=== PATIENT | male | born 1955 | race Caucasian/White ===

== ENCOUNTER → 2023-08-30 10:44 | Outpatient (BNVA) | payer MEDICARE, SELFPAY | PROVIDERS: Visit Provider Surgery | DX: K21.9 Gastro-esophageal reflux disease without esophagitis (principal); Z12.11 Encounter for screening for malignant neoplasm of colon; K40.20 Bilateral inguinal hernia, without obstruction or gangrene, not specified as recurrent | CPT/HCPCS: 99203 ==

== ENCOUNTER 2025-05-09 12:04 | Emergency (ER) | payer MEDICARE, SELFPAY ==
--- NOTE | 2025-05-09 12:07 | XRR_ITS ---
PROCEDURE INFORMATION: Exam: XR Right Shoulder Exam date and time: 05/09/2025 12:34 PM Age: 70 years old Clinical indication: Injury or trauma; Fall; Blunt trauma (contusions or hematomas); Shoulder; Right TECHNIQUE: Imaging protocol: Radiologic exam of the right shoulder. Views: 2 or more views. COMPARISON: No relevant prior studies available. FINDINGS: Bones/joints: Normal. Soft tissues: Normal. XR/XR shoulder RT min 2V* [id number] IMPRESSION: No acute findings.
[2025-05-09 12:12] VITALS: BP 151/92; PULSE 75; TEMP 36.5; O2SAT 98
--- OUTSIDE RECORDS SUMMARY | 2025-05-09 13:35 | XMS_ITS | Data Portability ---
Author Organization TOO - [facility], [facility] Address [address] [facility] [address] [place] [address] Assessment No assessment recorded. Plan of Treatment Reminders Order Date Submit Date Provider Last Modified By Organization Details Last Modified Time Details Appointments None recorded. Lab urinalysis , complete 2023 024 [email or web address] [facility], [address] [facility], [place], [address], 4 15:11:03 culture, urine 2023 024 [facility], [address] [place] [address] 248, [facility] [address] [place], [address], 4 22:36:36 Referral general surgeon referral 2023 024 [email or web address] Harpal Strauss MD, [address] [facility], [place], [address], 4 14:26:14 Procedures None recorded. Surgeries None recorded. Imaging None recorded. Medication Orders None recorded. Patient TargetsNo targets recorded. Patient InstructionsNo instructions recorded. Reason for Referral General Surgeon Referral for Left inguinal hernia Referring Physician: Florentin Vallecillo, Family Medicine, Encounter Date: 08/05/2023 Results Created Date Observation Date Name Description Value Unit Range Abnormal Flag Note LastModifiedBy Organization Detail LastModifiedTime 08/05/19 24 08/05/2023 URINA LYSIS WITH MICRO color YELLOW Not Available [facility] [address], [place], [address], 08/05/2023 13:22:33 08/05/19 24 08/05/2023 URINA LYSIS WITH MICRO clarity CLEAR Not Available [facility] [address], [place], [address], 08/05/2023 13:22:33 08/05/19 24 08/05/2023 URINA LYSIS WITH MICRO glu NEGATI VE Not Available [facility] [address], [place], [address], 08/05/2023 13:22:33 08/05/19 24 08/05/2023 URINA LYSIS WITH MICRO bili NEGATI VE Not Available [facility] [address], [place], [address], 08/05/2023 13:22:33 08/05/19 24 08/05/2023 URINA LYSIS WITH MICRO ket NEGATI VE Not Available [facility] [address], [place], [address], 08/05/2023 13:22:33 08/05/19 24 08/05/2023 URINA LYSIS WITH MICRO S.g 1.015 1.005- 1.025 Not Available [facility] [address], [place], [address], 08/05/2023 13:22:33 08/05/19 24 08/05/2023 URINA LYSIS WITH MICRO pH 7.5 5.0-7. 0 high Not Available [facility] [address], [place], [address], 08/05/2023 13:22:33 08/05/19 24 08/05/2023 URINA LYSIS WITH MICRO pro NEGATI VE Not Available [facility] [address], [place], [address], 08/05/2023 13:22:33 08/05/19 24 08/05/2023 URINA LYSIS WITH MICRO uro 0.2 E.U./D L Not Available [facility] [address], [place], [address], 08/05/2023 13:22:33 08/05/19 24 08/05/2023 URINA LYSIS WITH MICRO nit NEGATI VE Not Available [facility] [address], [place], [address], 08/05/2023 13:22:33 08/05/19 24 08/05/2023 URINA LYSIS WITH MICRO blo NEGATI VE Not Available [facility] [address] [facility] [address], [place], [address], 08/05/2023 13:22:33 08/05/19 24 08/05/2023 URINA LYSIS WITH MICRO ace NEGATI VE Not Available [facility] [address], [place], [address], 08/05/2023 13:22:33 08/05/19 24 08/05/2023 URINA LYSIS WITH MICRO WBC 0-1 Not Available [facility] [address] [facility] [address], [place], [address], 08/05/2023 13:22:33 08/05/19 24 08/05/2023 URINA LYSIS WITH MICRO RBC 0-1 Not Available [facility] [address], [place], [address], 08/05/2023 13:22:33 08/05/19 24 08/05/2023 URINA LYSIS WITH MICRO epi cells NEGATI VE Not Available [facility] [address] [facility] [address], [place], [address], 08/05/2023 13:22:33 08/05/19 24 08/05/2023 URINA LYSIS WITH MICRO bacteria NEGATI VE Not Available [facility] [address] [facility] [address], [place], [address], 08/05/2023 13:22:33 08/05/19 24 08/05/2023 URINA LYSIS WITH MICRO other NEG Not Available [facility] [address] [facility] [address], [place], [address], 08/05/2023 13:22:33 08/05/19 24 08/06/2023 CULTU RE, URINE , ROUTI NE culture, urine, routine SEE NOTE CULTU RE, URINE , ROUTI NE Micro Numbe r: [id number] Test Statu s: Final Speci men Sourc e: Urine Speci men Quali ty: Adequ ate Resul t: No Growt h Not Available [place] [address] [place], [address], 08/06/2023 22:36:36 Result Notes None recorded. Problems Name Problem SNOMED Code Status Onset Date Resolution Date Notes Provider Name and Address Organization Details Recorded Time Urgent desire to urinate [id number] Active 024 NAOMI smith [facility] L.L.CRadha 08/05/2023 12:52:48 Problem Notes None recorded. Medical Equipment None Reported. Allergies Allergen ID Allergen Name Allergen Category Reaction Reaction Severity Criticality Documentation Date Start Date Code Code System Note Provider Name and Address Organization Details Recorded Time 83258 Product containin g penicilli n (product) medicatio n Not available Not available Not available 08/05/2023 98610 8001 SNOMED NAOMI smith [facility] LRadhaLRadhaCRadha 12:54:37 10921 codeine medicatio n Not available Not available Not available 08/05/2023 2670 RxNorm NAOMI smith [facility] LRadhaL.CRadha 01/18/202 4 12:54:46 Vitals Date Recorded Body height Body mass index (BMI) Body weight Oxygen saturation Oxygen saturation in Arterial blood by Pulse oximetry Heart rate Respiratory rate Body temperature Systolic And Diastolic Provider Name and Address Organization Details Last Updated DateTime 4 187.96 cm 23.8 kg/m2 94258.5 9 g 97 % 97 % 78 /min 20 /min 98.9 [degF] 140/90 mm[Hg] NAOMI NASS[facility], [place] 4 12:47:04 Social History None recorded. Functional Status None recorded. Mental Status None recorded. Family History Nothing Reported. Medical History No medical history recorded. Past Encounters Encounter ID Performer Location Encounter Start Date Encounter Closed Date Diagnosis/Indication Diagnosis SNOMED-CT Code Diagnosis ICD10 Code Diagnosis IMO Codes Diagnosis Note [id number] FLORENTIN VALLECILLO PA-C [facility] ([facility]) [address] [place] [phone] 08/05/2023 12:36:12 08/05/2023 14:47:30 Urgent desire to urinate 88076610 R39.15 urine clear. Left inguinal hernia 236 224228 K40.90 pt not sure he aggrees with my dx. I offered a CT scan and referal to gen surgeon.He will take the appt. (declined CT due to cost) He does not have a great cell phone. I will procede with referal but also gave him Dr. Strauss office # so he can call for appt. Health Concerns Section Related Observation LastModified by Organization Detai ls LastModified Time None Recorded Concern Status LastModified by Organization Details LastModified Time None Recorded Advance Directives Directive None Recorded Payers Insurance Date Sequence Insurance Name Policy Number Policy Roberts Covered Member ID Roberts Member ID Guarantor Name 08/06/2023 [place] - [facility] (MEDICARE) Angel Felipe [id number] Angel Felipe 08/06/2023 1 [place] [employer] Angel Felipe [id number] Angel Felipe Notes Date Note Type Note Provider Name and Address Organization Details Recorded Time 08/05/2023 text/html Abdominal PainRe ported by PatientAbdominal PainFor quality, patient reportscramping,dull, andsharp. For location, patient reportsllq. For severity, patient reportsmoderate. For duration, patient reportsintermittent. For onset/timing, patient reportsacute(5-6 weeks). For aggravating factors, patient reportsmovement. For alleviating factors, patient reportslaying down. pcp none hasn't seen a dr in 20 years/has some urgency with urinationone month of dull pain in the LLQfeels a fullness in the inguinal canalnever had colonoscopy.left hip pain some but not with movementFeels pain is moving to R side. and progressing FLORENTIN VALLECILLO PA-C [address] [place], [phone], [facility] 08/05/2023 14:33:15
--- NOTE | 2025-05-09 13:37 | W.ED.EXTPRO ---
HPI - Extremity Problem General: Chief complaint: Extremity Injury, Upper Stated complaint: right shoulder pain/fall Time Seen by Provider: 05/09/25 12:44 Source: patient Mode of arrival: ambulatory Limitations: no limitations History of Present Illness: 70-year-old male states he had a fall 2 days going landed on his right side. He states has been having increasing right shoulder pain since then. States the pain is currently a 6 out of 10. States she has had some slight decreased range of motion does have pain with range of motion and palpation. He denies any other injuries denies hitting his head denies any loss of consciousness. Related Data Home Medications ?Medication ?Instructions ?Recorded ?Confirmed ibuprofen 200 mg tablet 200 mg PO Q6H PRN 08/30/23 08/30/23 Previous Rx's ?Medication ?Instructions ?Recorded pantoprazole 40 mg tablet,delayed 40 mg PO BID 6 weeks #84 tabs 08/30/23 release (Protonix) naproxen 500 mg tablet (Naprosyn) 500 mg PO BID PRN pain #20 tabs 05/09/25 Allergies Allergy/AdvReac Type Severity Reaction Status Date / Time aspirin Allergy hives Verified 05/09/25 12:17 codeine Allergy anyphalaxis Verified 05/09/25 12:17 Penicillins Allergy Unknown Verified 05/09/25 12:17 Review of Systems Musc: Reports: extremity pain ON LICENSE OF [facility] ED PFSH: Family History Mother Cancer non hodkins lymphoma Sister Cancer Social History Smoking and tobacco/nicotine status: never used tobacco/nicotine Alcohol intake: current Alcohol intake frequency: holidays/special occasions only Physical Exam Const: COMMON NORMALS: no acute distress, patient oriented x3 and healthy appearing HENMT: COMMON NORMALS: normocephalic and atraumatic HEAD & SCALP: normocephalic and atraumatic Eye: COMMON NORMALS: conjunctivae normal CONJUNCTIVA: Yes conjunctivae normal Neck/C-Spine: COMMON NORMALS: full ROM Chest: COMMONS NORMALS: normal inspection of the chest Resp: COMMON NORMALS: normal respiratory effort, No retractions, No use of accessory muscles and clear to auscultation bilaterally AUSCULTATION: clear to auscultation bilaterally Cardio: COMMON NORMALS: regular rate, regular rhythm and No murmurs present (Cardio) RATE: regular rate RHYTHM: regular rhythm Extremity: COMMON NORMALS: normal to inspection NARRATIVE EXTREMITY EXAM: No obvious deformity on exam distal pulse sensation intact on the right arm does have pain with range of motion Neuro: COMMON NORMALS: patient oriented x3, moves all extremities and no focal motor deficits Psych: COMMON NORMALS: mental status grossly normal, Normal thought process present and cooperative THOUGHT PROCESS: Normal thought process present Skin: COMMON NORMALS: no rashes or lesions noted and no wounds GENERAL SKIN EXAM: no rashes or lesions noted Course Vital Signs: Vital signs: Vital Signs Temperature 97.7 F 05/09/25 12:12 Pulse Rate 75 05/09/25 12:12 Blood Pressure 151/92 05/09/25 12:12 Pulse Oximetry 98 05/09/25 12:12 Oxygen Delivery Me thod Room Air 05/09/25 12:12 MDM - Extremity (Nontraumatic) Medical Decision Making Patient presents for shoulder sprain after a fall. I did review his x-rays showed no acute abnormalities. He has no signs of fractures or shoulder dislocation. No head injury no neck pain. Will prescribe him Naprosyn for pain I informed him he needs to follow-up with orthopedics we will put a referral into Dr. Narvaez. He is return if worsening he understands and agrees to plan Lab Data Radiology Impressions Shoulder X-Ray 05/09/25 12:07 IMPRESSION: No acute findings. All radiology interpretation(s) finalized by discharge Discharge Plan Discharge Patient Disposition: Home Clinical Impression: Sprain of right shoulder Qualifiers: Encounter type: initial encounter Shoulder sprain type: unspecified sprain Qualified Code(s): S43.401A - Unspecified sprain of right shoulder joint, initial encounter Condition: Stable Prescriptions: New naproxen [Naprosyn] 500 mg tablet 500 mg PO BID PRN (Reason: pain) Qty: 20 0RF No Action ibuprofen 200 mg tablet 200 mg PO Q6H PRN pantoprazole [Protonix] 40 mg tablet,delayed release (DR/EC) 40 mg PO BID 42 Days Qty: 84 1RF Discharge Orders: Discharge ED (Routine); Ordered 05/09/25 Ordered By: Dony Blue Discharge Diet: Advance as tolerated Discharge Activity: Resume usual activity Patient Instructions: Shoulder Sprain (ED) Print Language: Croatian Coding Level of Care Code ED [employer]leyball Assistant Coach for Willem Fitch
[2025-05-09 13:42] VITALS: BP 147/87; PULSE 67; RESP 16; O2SAT 99
--- NOTE | 2025-05-10 07:50 | DCPLANNER ---
messaged ortho for er f/u
== END 2025-05-09 13:49 | disposition home or self-care (01) ==
PROVIDERS: Emergency Provider Emergency Medicine
DX: S43.401A Unspecified sprain of right shoulder joint, initial encounter (principal); W19.XXXA Unspecified fall, initial encounter
CPT/HCPCS: 73030; 99283; J9999